=== PATIENT | female | born 1930 | race Caucasian/White ===

== ENCOUNTER 2016-07-17 08:57 | Inpatient (IN) | payer OTHER ==
[~2016-07-17] VITALS: Ht 162.6 cm; Wt 66.4 kg
[2016-07-17] MEDS ORDERED: IPRATROPIUM BROM 0.5 MG/2.5ML INH SOL NEB ONE (09:30)
[2016-07-17] MEDS ORDERED: ALBUTEROL SULF 2.5 MG/0.5ML(0.5%) NEB SOLN NEB ONE (09:30)
[2016-07-17 10:09] LABS: Basophils # (auto) 0 uL; Basophils % (auto) 0.1 % (0.0-2.0); Eosinophils # (auto) 0 uL; Eosinophils % (auto) 0.2 % (0.0-7.0); Hematocrit 34.8 % (36.0-46.0); Hemoglobin 10.6 g/dL (12.2-16.2); Lymphocytes # (auto) 0.5 uL; Lymphocytes % (auto) 6.2 % (10.0-50.0); Mean Corpuscular Hemoglobin 28.3 pg (28.0-32.0); Mean Corpuscular Hgb Conc. 30.5 g/dL (32.0-36.0); Mean Corpuscular Volume 92.8 fL (80.0-100.0); Monocytes # (auto) 0.5 uL; Monocytes % (auto) 5.8 % (0.0-12.0); Neutrophils # (auto) 6.9 uL; Neutrophils % (auto) 87.7 % (37.0-80.0); Platelet Count (auto) 282 10^3/uL (140-450); Red Cell Distribution Width 17.2 % (11.6-16.0); White Blood Cell 7.9 10^3/uL (4.4-10.8)
[2016-07-17 10:31] LABS: Albumin 3.6 g/dL (3.4-5.0); BUN/Creatinine Ratio 31.7; Bilirubin, Total 0.4 mg/dL (0.2-1.0); Calcium 9.1 mg/dL (8.5-10.1); Total Protein 6.7 g/dL (6.4-8.2)
[2016-07-17] MEDS ORDERED: FUROSEMIDE 40 MG/4 ML VIAL IV ONE ×2 (10:45→15:45)
[2016-07-17] MEDS ORDERED: cefTRIAXone 1GM/50ML D5W 50 ML IV ONE (10:45)
[2016-07-17 11:28] LABS: Partial Thromboplastin Time 36.4 sec (22.64-33.71)
[2016-07-17 11:30] LABS: INR 2.6 (0.9-1.15); Prothrombin Time 26.8 sec (9.37-12.3)
[2016-07-17 13:09] LABS: Urine Bilirubin Negative (Negative); Urine Blood Negative /uL (Negative); Urine Color Yellow (Yellow); Urine Glucose Normal (Normal); Urine Hyaline Cast FEW /lpf (0 - 2); Urine Ketone Negative (Negative); Urine Nitrite Negative (Negative); Urine RBC 1 /hpf (0 - 4); Urine Urobilinogen Normal (Negative); Urine pH 5.5 (5.0-8.0)
[2016-07-17] MEDS ORDERED: POTASSIUM CHL 10 Meq TABLET PO ONE (15:45)
[2016-07-17] MEDS ORDERED: AZITHROMYCIN 500MG/D5W 250ML 250 ML IV ONE (15:45)
[2016-07-17] MEDS ORDERED: MORPHINE SULF INJ 2 MG/ML SYRINGE 1ML IV PRN ×2 (16:00)
[2016-07-17] MEDS ORDERED: TEMAZEPAM 15 MG CAP PO PRN (16:00)
[2016-07-17] MEDS ORDERED: NITROGLYCERIN 0.4 MG SL TAB SL PRN (16:00)
[2016-07-17] MEDS ORDERED: DOCUSATE SOD 100 MG CAP PO PRN (16:00)
[2016-07-17] MEDS ORDERED: ONDANSETRON HCL 4 MG/2 ML VIAL IV PRN (16:00)
[2016-07-17] MEDS ORDERED: ACETAMINOPHEN 325 MG TAB PO PRN (16:00)
[2016-07-17] MEDS ORDERED: DEXTROSE (50%) 50ML SYRG IV PRN (16:00)
[2016-07-17] MEDS ORDERED: HYDROcodone-ACET 5/325MG TAB PO PRN (16:00)
[2016-07-17] MEDS: ACCU-CHEK COMFORT CURVE STRIP VI SCH ×2 (16:29→21:24)
[2016-07-17] MEDS: InsuLIN REG 1unit/0.01ml Soln (100units/ml) SC SCH ×2 (16:31→21:24)
[2016-07-17] MEDS ORDERED: WARFARIN SODIUM 2.5 MG TAB PO ONE (17:30)
[2016-07-17] MEDS ORDERED: WARF2.5T39 PO (18:36)
[2016-07-17] MEDS ORDERED: POTA10TA79 PO (18:36)
[2016-07-17] MEDS ORDERED: FURO20TA PO (18:36)
[2016-07-17] MEDS ORDERED: SERT-138 PO (18:36)
[2016-07-17] MEDS ORDERED: AMI200T PO (18:36)
[2016-07-17] MEDS ORDERED: ALBU1AER4 IN (18:39)
[2016-07-17] MEDS ORDERED: SIMV10TA73 PO (18:39)
[2016-07-17] MEDS: IPRATROPIUM BROM 0.5 MG/2.5ML INH SOL NEB SCH (18:46)
[2016-07-17] MEDS: ALBUTEROL SULF 2.5 MG/0.5ML(0.5%) NEB SOLN NEB SCH (18:46)
[2016-07-17 19:29] VITALS: BP 112/76
[2016-07-17 21:23] VITALS: BP 107/60
[2016-07-17] MEDS: ATORVASTATIN 20 MG TAB PO SCH (21:24)
[2016-07-17] MEDS: CALCIUM CARB 500 MG CHEW TAB PO SCH (21:24)
[2016-07-17] MEDS: SODIUM CHLOR 0.9% PF (SALINE LOCK) 10ML VIAL IV SCH (21:24)
[2016-07-18] MEDS: IPRATROPIUM BROM 0.5 MG/2.5ML INH SOL NEB SCH ×4 (00:16→18:57)
[2016-07-18] MEDS: ALBUTEROL SULF 2.5 MG/0.5ML(0.5%) NEB SOLN NEB SCH ×4 (00:16→18:56)
[2016-07-18 05:26] VITALS: BP 115/74
[2016-07-18] MEDS: SODIUM CHLOR 0.9% PF (SALINE LOCK) 10ML VIAL IV SCH ×3 (06:02→21:38)
[2016-07-18 06:22] LABS: Basophils # (auto) 0 uL; Basophils % (auto) 0.4 % (0.0-2.0); Eosinophils # (auto) 0.1 uL; Eosinophils % (auto) 0.9 % (0.0-7.0); Hematocrit 31.6 % (36.0-46.0); Hemoglobin 9.7 g/dL (12.2-16.2); Lymphocytes # (auto) 1.1 uL; Lymphocytes % (auto) 14.7 % (10.0-50.0); Mean Corpuscular Hemoglobin 28.1 pg (28.0-32.0); Mean Corpuscular Hgb Conc. 30.7 g/dL (32.0-36.0); Mean Corpuscular Volume 91.4 fL (80.0-100.0); Mean Platelet Volume 7.9 fL (7.4-10.4); Monocytes # (auto) 0.6 uL; Monocytes % (auto) 8.4 % (0.0-12.0); Neutrophils # (auto) 5.4 uL; Neutrophils % (auto) 75.6 % (37.0-80.0); Platelet Count (auto) 227 10^3/uL (140-450); Red Cell Distribution Width 16.8 % (11.6-16.0); White Blood Cell 7.2 10^3/uL (4.4-10.8)
[2016-07-18 06:28] LABS: Partial Thromboplastin Time 37.4 sec (22.64-33.71)
[2016-07-18] MEDS: InsuLIN REG 1unit/0.01ml Soln (100units/ml) SC SCH ×4 (06:28→21:35)
[2016-07-18] MEDS: ACCU-CHEK COMFORT CURVE STRIP VI SCH ×4 (06:28→21:38)
[2016-07-18 06:35] LABS: Albumin 3.2 g/dL (3.4-5.0); BUN/Creatinine Ratio 26.7; Bilirubin, Total 0.3 mg/dL (0.2-1.0); Calcium 8.7 mg/dL (8.5-10.1); Potassium 3.8 mmol/L (3.5-5.1); Total Protein 5.9 g/dL (6.4-8.2)
[2016-07-18 06:43] LABS: INR 3.23 (0.9-1.15); Prothrombin Time 33.3 sec (9.37-12.3)
[2016-07-18 08:30] VITALS: BP 121/56
[2016-07-18] MEDS: CALCIUM CARB 500 MG CHEW TAB PO SCH ×2 (08:53→21:38)
[2016-07-18] MEDS: AMIODARONE HCL 200 MG TAB PO SCH (08:54)
[2016-07-18] MEDS: POTASSIUM CHL 10 Meq TABLET PO SCH (08:54)
[2016-07-18] MEDS: SERTRALINE HCL 50 MG TAB PO SCH (08:54)
[2016-07-18] MEDS: MULTIPLE VITAMIN TAB PO SCH (08:55)
[2016-07-18] MEDS ORDERED: cefTRIAXone 1GM/50ML D5W 50 ML IV SCH (09:00)
[2016-07-18] MEDS ORDERED: AZITHROMYCIN 500MG/D5W 250ML 250 ML IV SCH (10:00)
[2016-07-18] MEDS ORDERED: ENOXAPARIN SOD 40 MG/0.4 ML SYRINGE SC SCH (10:00)
[2016-07-18] MEDS ORDERED: FUROSEMIDE 40 MG/4 ML VIAL IV SCH ×2 (10:00)
[2016-07-18] MEDS ORDERED: LEVOFLOXACIN 500MG 100 ML IV ONE (11:00)
[2016-07-18 12:59] VITALS: BP 127/56
[2016-07-18] MEDS: methylPREDNISolone SOD SUCC 40 MG/ML VL IV SCH ×2 (14:17→21:38)
[2016-07-18 16:36] VITALS: BP 113/58
[2016-07-18] MEDS ORDERED: INFLUENZA QUAD 2016-2017 0.5 ML SYRG IM ONE (18:00)
[2016-07-18] MEDS: BUDESONIDE (INHALATION) 0.5 MG/2 ML NEB NEB SCH (18:57)
[2016-07-18] MEDS: ATORVASTATIN 20 MG TAB PO SCH (21:38)
[2016-07-18 22:00] VITALS: BP 128/63
[2016-07-19 05:00] VITALS: BP 109/70
[2016-07-19] MEDS: SODIUM CHLOR 0.9% PF (SALINE LOCK) 10ML VIAL IV SCH ×2 (05:33→14:11)
[2016-07-19] MEDS: methylPREDNISolone SOD SUCC 40 MG/ML VL IV SCH ×2 (05:34→14:11)
[2016-07-19 05:45] LABS: Basophils # (auto) 0 uL; Eosinophils # (auto) 0 uL; Hematocrit 32.1 % (36.0-46.0); Hemoglobin 9.7 g/dL (12.2-16.2); Lymphocytes # (auto) 0.3 uL; Lymphocytes % (auto) 3.6 % (10.0-50.0); Mean Corpuscular Hemoglobin 27.8 pg (28.0-32.0); Mean Corpuscular Hgb Conc. 30.4 g/dL (32.0-36.0); Mean Corpuscular Volume 91.4 fL (80.0-100.0); Mean Platelet Volume 8.1 fL (7.4-10.4); Monocytes # (auto) 0.1 uL; Monocytes % (auto) 0.9 % (0.0-12.0); Neutrophils # (auto) 6.9 uL; Neutrophils % (auto) 95.5 % (37.0-80.0); Platelet Count (auto) 225 10^3/uL (140-450); Red Cell Distribution Width 17.1 % (11.6-16.0); White Blood Cell 7.3 10^3/uL (4.4-10.8)
[2016-07-19 05:55] LABS: Partial Thromboplastin Time 37.5 sec (22.64-33.71)
[2016-07-19 06:08] LABS: BUN/Creatinine Ratio 31.2; Calcium 8.6 mg/dL (8.5-10.1)
[2016-07-19 06:14] LABS: INR 3.09 (0.9-1.15); Prothrombin Time 31.8 sec (9.37-12.3)
[2016-07-19] MEDS: ACCU-CHEK COMFORT CURVE STRIP VI SCH ×2 (06:36→11:30)
[2016-07-19] MEDS: InsuLIN REG 1unit/0.01ml Soln (100units/ml) SC SCH ×2 (06:37→11:30)
[2016-07-19] MEDS: ALBUTEROL SULF 2.5 MG/0.5ML(0.5%) NEB SOLN NEB SCH ×3 (06:46→11:39)
[2016-07-19] MEDS: BUDESONIDE (INHALATION) 0.5 MG/2 ML NEB NEB SCH (06:46)
[2016-07-19] MEDS: IPRATROPIUM BROM 0.5 MG/2.5ML INH SOL NEB SCH ×3 (06:46→11:39)
[2016-07-19 09:10] VITALS: BP 115/72
[2016-07-19] MEDS: CALCIUM CARB 500 MG CHEW TAB PO SCH (09:29)
[2016-07-19] MEDS: AMIODARONE HCL 200 MG TAB PO SCH (09:29)
[2016-07-19] MEDS: SERTRALINE HCL 50 MG TAB PO SCH (09:30)
[2016-07-19] MEDS: POTASSIUM CHL 10 Meq TABLET PO SCH (09:30)
[2016-07-19] MEDS: MULTIPLE VITAMIN TAB PO SCH (09:30)
[2016-07-19] MEDS ORDERED: FUROSEMIDE 40 MG/4 ML VIAL IV SCH (10:00)
[2016-07-19] MEDS ORDERED: LEVOFLOXACIN 500MG 100 ML IV SCH ×2 (10:00)
[2016-07-19] MEDS ORDERED: LEVOFLOXACIN 250MG 50 ML IV SCH (10:00)
[2016-07-19 13:01] VITALS: BP 116/75
[2016-07-19] MEDS ORDERED: FURO40TA4 PO (14:09)
[2016-07-19 14:45] VITALS: BP 116/75
== END 2016-07-19 15:57 | disposition home health service (06) | DRG 871 ==
LOC: ER 09:16 → TELE 09:17 → TELE-CENTR 17:44
PROVIDERS: ADMIT Internal Medicine; ATTEND Hospitalist
PROC: 5A09357 Assistance with Respiratory Ventilation, Less than 24 Consecutive Hours, Continuous Positive Airway Pressure (ICD-10-PCS; principal; 2016-07-17)
PROC: 3E0234Z Introduction of Serum, Toxoid and Vaccine into Muscle, Percutaneous Approach (ICD-10-PCS; 2016-07-18)
DX: A41.9 Sepsis, unspecified organism (principal); I50.33 Acute on chronic diastolic (congestive) heart failure; J96.01 Acute respiratory failure with hypoxia; J18.9 Pneumonia, unspecified organism; J45.901 Unspecified asthma with (acute) exacerbation; E87.1 Hypo-osmolality and hyponatremia; I48.92 Unspecified atrial flutter; J44.0 Chronic obstructive pulmonary disease with (acute) lower respiratory infection; D68.9 Coagulation defect, unspecified; N18.3 Chronic kidney disease, stage 3 (moderate); D63.8 Anemia in other chronic diseases classified elsewhere; E11.65 Type 2 diabetes mellitus with hyperglycemia; E11.22 Type 2 diabetes mellitus with diabetic chronic kidney disease; E11.21 Type 2 diabetes mellitus with diabetic nephropathy; J44.9 Chronic obstructive pulmonary disease, unspecified; I48.91 Unspecified atrial fibrillation; Z85.3 Personal history of malignant neoplasm of breast; Z90.12 Acquired absence of left breast and nipple; Z23 Encounter for immunization; Z98.890 Other specified postprocedural states; Z88.5 Allergy status to narcotic agent; Z79.01 Long term (current) use of anticoagulants
CPT/HCPCS: 36415; 36600; 51702; 71010; 80048; 80053; 81001; 82805; 82962; 83036; 83605; 83735; 84443; 84484; 85025; 85610; 85730; 87040; 93005; 93306; 94640; 94660; 94761; 96365; 96367; 96375; 96376; 97001; J0696; J1815; J1956